=== PATIENT | male | born 1955 | race Caucasian/White ===

== ENCOUNTER 2017-02-12 09:23 | Emergency (ER) | payer OTHER ==
[2017-02-12 09:30] VITALS: BP 96/79; PULSE 75; RESP 16; TEMP 99.1; O2SAT 92
--- NOTE | 2017-02-12 09:58 | EDPHY ---
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 No change in his vision Review of systems As per HPI General no fever no chills no weakness HEENT positive eye discomfort no eye discharge. Positive eye redness yesterday, no sore throat Respiratory no cough, no shortness of breath Cardiac no chest pain, no peripheral edema GI no abdominal pain, no diarrhea, no constipation, no nausea, no vomiting no flank pain, no hematuria, no dysuria Musculoskeletal no myalgias, no joint pain Heme no easy bruising, no easy bleeding Endo no polyuria, no polydipsia Skin no rashes, no pruritus Neuro no syncope, no dizziness, no headaches Psych is no suicidal ideation, no homicidal ideation Past Medical/Surgical History: Noncontributory Social History: Alcohol socially, denies drug use Smoking Status: Former smoker Physical Exam: 61-year-old male Alert and oriented in no acute distress nontoxic appearance, afebrile Atraumatic normocephalic Left eye-extraocular muscle intact anicteric pupil reactive, not sluggish No erythema, no discharge No visible foreign body, negative fluorescein uptake negative fluorescein pooling Neck no JVD Lungs clear to auscultation, no respiratory distress Heart regular rate and rhythm Extremities no cyanosis clubbing edema Constitutional: Initial Vital Signs Temperature (C) 37.3 C 02/12/17 09:27 Heart Rate 75 02/12/17 09:27 Respiratory Rate 16 02/12/17 09:27 Blood Pressure 96/79 L 02/12/17 09:27 O2 Sat (%) 92 02/12/17 09:27 Allergies/Adverse Reactions: No Known Allergies Allergy (Verified 02/12/17 09:31) Home Medications: Medication Instructions Recorded NK [No Known Home Meds] 12/23/14 Medical Decision Making ED Course/Re-evaluation: Patient seen and evaluated for foreign body sensation works with metal Physical exam unable to identify a foreign body, negative fluorescein negative slit-lamp Impression Left eye irritation, possible foreign body yesterday Plan Referral to Ophthalmology Departure - Departure Disposition: Home, Routine, Self-Care Clinical Impression: Corneal irritation of left eye Condition: Good Instructions: Eye Foreign Body (ED) Additional Instructions: If you continue to have symptoms of possible metal foreign body in her eye please follow-up with ophthalmology in 1-2 days. There are currently no signs of this foreign body at present there is no sign of corneal abrasion, no visible foreign body, no rust ring,and currently no unusual redness in your eye Referrals: NONE *PRIMARY CARE P,. [Primary Care Provider] - As per Instructions Juan Estrada MD [Medical Doctor] - As per Instructions
== END 2017-02-12 10:10 | disposition home or self-care (01) ==
LOC: CED 09:23
DX: H57.8 Other specified disorders of eye and adnexa (principal); Z87.891 Personal history of nicotine dependence